=== PATIENT | male | born 1980 | race American Indian/Alaskan Native ===

== ENCOUNTER 2017-04-05 08:11 | Emergency (ER) | payer OTHER, BC ==
[2017-04-05] MEDS ORDERED: TYLENOL PO ONE (08:27)
[2017-04-05] MEDS ORDERED: ROBAXIN PO ONE (08:27)
[2017-04-05] MEDS ORDERED: TORADOL IM ONE (08:27)
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
[2017-04-05 11:30] VITALS: BP 117/68
== END 2017-04-05 11:41 | disposition home or self-care (01) ==
LOC: ED 08:11
DX: M54.9 Dorsalgia, unspecified (principal); V89.2XXA Person injured in unspecified motor-vehicle accident, traffic, initial encounter; Y93.89 Activity, other specified; Y92.89 Other specified places as the place of occurrence of the external cause; Y99.8 Other external cause status
CPT/HCPCS: 71020; 72100; 96372; 99284; J1885